=== PATIENT | male | born 1935 | race Caucasian/White ===

== ENCOUNTER 2017-01-16 14:31 | Inpatient (IN) | payer OTHER ==
[~2017-01-16] VITALS: Ht 172.7 cm; Wt 66.7 kg
[~2017-01-16 14:31] MED LIST: ASPIR 8181 MG PO; HUMALOG100 U/ML SC; KEY-E1 CRE TP; LANTUS SOLOS100 U/M1 SC; LIPI20 PO; METOPROLOL SUC100 M1 PO; TAMSULOSIN HYD0.4 M1 PO; VICTOZA6 MG/M1 SC; VITAMIN B121000 MCG PO; XARELTO15 M1 PO
[2017-01-16 17:19] LABS: BASOPHIL % 0.1 % (0-2); PLATELET COUNT 160 x10^3mcL (130-400)
[2017-01-16 17:20] LABS: RED CELL DISTRIBUTION WIDTH 16.4 % (11.5-14.5)
[2017-01-16 17:28] LABS: CALCIUM 8.5 mg/dL (8.5-10.1); CARBON DIOXIDE 23.3 mmol/L (21-32); CHLORIDE SERUM 109 mmol/L (98-107); CREATININE SERUM 1.6 mg/dL (0.7-1.3); GLUCOSE SERUM 249 mg/dL (74-106); SODIUM SERUM 143 mmol/L (136-145)
[2017-01-16 17:37] LABS: FREE T4 1.25 ng/dL (0.76-1.46); T4(THYROXINE) 6.4 ug/dL (4.7-13.3)
[2017-01-16 17:41] LABS: ALBUMIN 2.6 g/dL (3.4-5.0); ALKALINE PHOSPHATASE 84 U/L (46-116); ALT/SGPT 30 U/L (16-63); AST/SGOT 30 U/L (15-37); BILIRUBIN TOTAL 0.73 mg/dL (0.20-1.00); C REACTIVE PROTEIN 3.1 mg/dL (<=0.9); TOTAL PROTEIN, SERUM 6.4 g/dL (6.4-8.2)
[2017-01-16 17:44] LABS: T3 TOTAL 0.73 ng/mL
[2017-01-16 17:58] LABS: ERYTHROCYTE SED RATE 67 mm/hr (0-20)
[2017-01-16 20:57] LABS: CHOLESTEROL/HDL RATIO 2.1
[2017-01-16 21:25] LABS: IRON 43 ug/dL (65-170); TOTAL IRON BINDING CAPACITY 309 ug/dL (250-450)
[2017-01-16 21:26] LABS: MAGNESIUM 1.8 mg/dL (1.8-2.4); PHOSPHOROUS 3.4 mg/dL (2.5-4.9)
[2017-01-16 21:27] VITALS: BP 128/58
[2017-01-16 21:52] LABS: RED BLOOD CELLS 2.88 M/mm3 (4.52-5.90)
[2017-01-16 23:05] VITALS: BP 128/58
[2017-01-17] VITALS (8 sets, daily range): BP systolic 118–161; BP diastolic 55–71
[2017-01-17 06:19] LABS: BASOPHIL % 0.3 % (0-2)
[2017-01-17 06:25] LABS: CALCIUM 8.4 mg/dL (8.5-10.1); CARBON DIOXIDE 23.3 mmol/L (21-32); CHLORIDE SERUM 111 mmol/L (98-107); CREATININE SERUM 1.6 mg/dL (0.7-1.3); GLUCOSE SERUM 151 mg/dL (74-106); MAGNESIUM 1.7 mg/dL (1.8-2.4); PHOSPHOROUS 3.9 mg/dL (2.5-4.9); POTASSIUM SERUM 3.7 mmol/L (3.5-5.1); SODIUM SERUM 144 mmol/L (136-145)
[2017-01-17 06:54] LABS: PLATELET COUNT 119 x10^3mcL (130-400); RED CELL DISTRIBUTION WIDTH 16.5 % (11.5-14.5)
[2017-01-18 05:40] VITALS: BP 131/57
[2017-01-18 06:21] LABS: BASOPHIL % 0.5 % (0-2)
[2017-01-18 06:36] LABS: CARBON DIOXIDE 23.2 mmol/L (21-32); CHLORIDE SERUM 111 mmol/L (98-107); CREATININE SERUM 1.4 mg/dL (0.7-1.3); GLUCOSE SERUM 141 mg/dL (74-106); POTASSIUM SERUM 3.9 mmol/L (3.5-5.1); SODIUM SERUM 142 mmol/L (136-145)
[2017-01-18 06:40] LABS: PLATELET COUNT 94 x10^3mcL (130-400); RED CELL DISTRIBUTION WIDTH 16.5 % (11.5-14.5)
[2017-01-18 07:08] LABS: UA SPECIFIC GRAVITY >=1.030 (1.005-1.035); microscopic required? YES; urine erythrocyte TRACE (NEGATIVE)
[2017-01-18 07:21] LABS: AMPHETAMINE QUAL UR NONE DETECTED (NEG <=1000)
[2017-01-18 09:45] VITALS: BP 152/61
[2017-01-18 13:50] VITALS: BP 116/59
[2017-01-18 17:04] VITALS: BP 130/59
[2017-01-18 18:50] LABS: SOURCE FLUID THORACENTESIS
[2017-01-18 22:11] VITALS: BP 121/60
[2017-01-19] VITALS (7 sets, daily range): BP systolic 119–154; BP diastolic 37–93
[2017-01-19 06:24] LABS: BASOPHIL % 0.4 % (0-2)
[2017-01-19 06:38] LABS: CARBON DIOXIDE 23.5 mmol/L (21-32); CHLORIDE SERUM 112 mmol/L (98-107); CREATININE SERUM 1.4 mg/dL (0.7-1.3); GLUCOSE SERUM 115 mg/dL (74-106); POTASSIUM SERUM 3.9 mmol/L (3.5-5.1); SODIUM SERUM 142 mmol/L (136-145)
[2017-01-19 06:47] LABS: PLATELET COUNT 86 x10^3mcL (130-400); RED CELL DISTRIBUTION WIDTH 16.1 % (11.5-14.5)
[2017-01-19 13:29] LABS: BASOPHIL % 0.1 % (0-2)
[2017-01-19 13:30] LABS: PLATELET COUNT 101 x10^3mcL (130-400); RED CELL DISTRIBUTION WIDTH 16.6 % (11.5-14.5)
[2017-01-20 06:13] VITALS: BP 151/65
[2017-01-20 06:34] LABS: BASOPHIL % 0.3 % (0-2)
[2017-01-20 06:42] LABS: PLATELET COUNT 98 x10^3mcL (130-400); RED CELL DISTRIBUTION WIDTH 16.8 % (11.5-14.5)
[2017-01-20 06:53] LABS: CALCIUM 8.2 mg/dL (8.5-10.1); CARBON DIOXIDE 23.7 mmol/L (21-32); CHLORIDE SERUM 109 mmol/L (98-107); CREATININE SERUM 1.3 mg/dL (0.7-1.3); GLUCOSE SERUM 125 mg/dL (74-106); POTASSIUM SERUM 4.4 mmol/L (3.5-5.1); SODIUM SERUM 139 mmol/L (136-145)
[2017-01-20 08:55] VITALS: BP 137/69
[2017-01-20 13:04] VITALS: BP 137/69
[2017-01-20 14:02] VITALS: BP 146/65
[2017-01-20 17:27] VITALS: BP 152/66
[2017-01-20] MEDS ORDERED: METOPROLOL SUC100 M2 (18:45)
[2017-01-20 22:11] VITALS: BP 142/67
== END 2017-01-20 22:39 | DRG 291 ==
LOC: ED 14:31 → DU 19:52 → MU 19:52 → DU 21:06 → MU 01-18 09:27 → DU 01-19 14:22
PROVIDERS: Family Medicine; Specialist; ADMIT Family Medicine
PROC: 0W993ZZ Drainage of Right Pleural Cavity, Percutaneous Approach (ICD-10-PCS; principal; 2017-01-18)
DX: I50.43 Acute on chronic combined systolic (congestive) and diastolic (congestive) heart failure (principal); J96.01 Acute respiratory failure with hypoxia; N17.0 Acute kidney failure with tubular necrosis; E43 Unspecified severe protein-calorie malnutrition; G93.41 Metabolic encephalopathy; J90 Pleural effusion, not elsewhere classified; G91.2 (Idiopathic) normal pressure hydrocephalus; I48.92 Unspecified atrial flutter; E11.52 Type 2 diabetes mellitus with diabetic peripheral angiopathy with gangrene; D68.9 Coagulation defect, unspecified; I11.0 Hypertensive heart disease with heart failure; I48.2 Chronic atrial fibrillation; E03.9 Hypothyroidism, unspecified; I65.23 Occlusion and stenosis of bilateral carotid arteries; E11.65 Type 2 diabetes mellitus with hyperglycemia; Z91.81 History of falling; Z98.1 Arthrodesis status; I27.2 Other secondary pulmonary hypertension; G30.9 Alzheimer's disease, unspecified; F02.80 Dementia in other diseases classified elsewhere, unspecified severity, without behavioral disturbance, psychotic disturbance, mood disturbance, and anxiety; Z79.4 Long term (current) use of insulin; Z68.23 Body mass index [BMI] 23.0-23.9, adult; Z89.512 Acquired absence of left leg below knee; Z87.820 Personal history of traumatic brain injury; Z98.2 Presence of cerebrospinal fluid drainage device
CPT/HCPCS: 32555; 36600; 72072; 80307; 82962; 83880; 84439; 97110-GP; 97116-GP; 97530-GP; C1729; J0696; J1644; J1815; J1940; J7030; J7050; J7620; J7626; P9016; Q0092; Q0163

== ENCOUNTER 2017-02-24 19:21 | Emergency (ER) | payer OTHER ==
[~2017-02-24] VITALS: Ht 170.2 cm; Wt 68.0 kg
[2017-02-24 19:21] VITALS: BP 0/0
[~2017-02-24 19:21] MED LIST changes: +METOPROLOL SUC100 M2
== END 2017-02-24 19:26 | disposition expired ==
LOC: ED 19:21
DX: I46.9 Cardiac arrest, cause unspecified (principal); E11.9 Type 2 diabetes mellitus without complications; N40.0 Benign prostatic hyperplasia without lower urinary tract symptoms; N18.9 Chronic kidney disease, unspecified; J44.9 Chronic obstructive pulmonary disease, unspecified; I65.23 Occlusion and stenosis of bilateral carotid arteries